=== PATIENT | female | born 1965 | race Caucasian/White ===

== ENCOUNTER → 2017-05-26 | Outpatient (CLI) | payer OTHER ==
--- NOTE | 2017-05-26 15:59 | RAD ---
Left wrist, 3 views, 05/26/2017: History: Wrist pain, fracture No previous radiographs are available at this time for comparison purposes. There is deformity of the distal radius without definite evidence of an acute fracture line. The findings suggest old trauma. The carpal bones are intact. There is mild soft tissue swelling about the wrist. IMPRESSION: Mild distal radial deformity suggesting old trauma.
== END | disposition home or self-care (01) ==
LOC: DXRAD 15:01
PROVIDERS: ATTEND Physician Assistant Medical
DX: M25.532 Pain in left wrist (principal); M21.832 Other specified acquired deformities of left forearm
CPT/HCPCS: 73110

== ENCOUNTER → 2021-03-12 | Outpatient (CLI) | payer OTHER ==
--- NOTE | 2021-03-12 12:14 | RAD ---
XR CHEST 2V INDICATION: SHORTNESS OF BREATH . COMPARISON STUDY: 07/21/2013. FINDINGS: Lungs: Normal lung volume. No pulmonary mass or consolidation. The tracheobronchial tree and hilar st ructures are normal. Pleura: No pleural effusion or pneumothorax. Heart and Mediastinum: The cardiomediastinal silhouette is normal. Mild tortuosity of the thoracic ao rta. Bones and Soft Tissues: Degenerative changes of the spine. IMPRESSION: No consolidation. Electronically signed by: Rafita John MD (03/12/2021 12:11 PM) [id number]
== END ==
LOC: RAD 10:31
PROVIDERS: ATTEND Physician Assistant Medical
DX: Z01.818 Encounter for other preprocedural examination (principal); M47.819 Spondylosis without myelopathy or radiculopathy, site unspecified
CPT/HCPCS: 71046